=== PATIENT | male | born 1995 | race Caucasian/White ===

== ENCOUNTER 2021-01-23 15:29 | Emergency (ER) | payer MEDICAID ==
[~2021-01-23] VITALS: Ht 177.8 cm; Wt 120.2 kg
[2021-01-23 15:56] VITALS: Ht 177.8 cm; Wt 120.2 kg
[2021-01-23 16:30] VITALS: BP 122/74
== END 2021-01-23 16:30 | disposition home or self-care (01) ==
LOC: ED 15:29
DX: F31.9 Bipolar disorder, unspecified (principal); Z76.0 Encounter for issue of repeat prescription